=== PATIENT | male | born 2000 | race Caucasian/White ===

== ENCOUNTER 2021-01-11 20:25 | Emergency (ER) | payer BC ==
[2021-01-11] MEDS ORDERED: Bacitracin 1 PK ONE (22:10)
== END 2021-01-11 22:25 | disposition home or self-care (01) ==
LOC: ERS 20:25
DX: S61.012A Laceration without foreign body of left thumb without damage to nail, initial encounter (principal); F17.210 Nicotine dependence, cigarettes, uncomplicated; W26.0XXA Contact with knife, initial encounter; Y93.E9 Activity, other interior property and clothing maintenance; Y92.009 Unspecified place in unspecified non-institutional (private) residence as the place of occurrence of the external cause
CPT/HCPCS: 12001

== ENCOUNTER 2022-02-11 02:56 | Emergency (ER) | payer BC | END 2022-02-11 03:34 | disposition home or self-care (01) | LOC: ERS 02:56 | DX: Z02.79 Encounter for issue of other medical certificate (principal) ==

== ENCOUNTER 2022-05-24 17:28 | Inpatient (IN) | payer OTHER, BC ==
[~2022-05-24 17:28] MED LIST: Iopamidol-370 76% 500 ML 1 ML ONE
[2022-05-24] MEDS ORDERED: Morphine 2 MG/ML VIAL ONE (17:40)
[2022-05-24 18:01] LABS: #Basophils 0.1 thou/uL (0.0-0.2); #Eosinphils 0.3 thou/uL (0.0-0.7); #Lymphocytes 4.5 thou/uL (1.20-3.40); #Monocytes 1.4 thou/uL (0.11-0.59); #Neutrophils 6.4 thou/uL (1.40-6.50); %Basophils 1.1 % (0.0-1.0); %Lymphocytes 35.6 % (21.0-51.0); %Neutrophils 50.3 % (42.0-75.0); Hemoglobin 15.5 g/dL (14.0-18.0); Mean Corpuscular HGB CONC 34.2 g/dL (32.0-36.0); Mean Corpuscular Hemoglobin 33.3 pg (27.0-31.0); Mean Corpuscular Volume 97.2 fl (78.0-98.0); Mean Platelet Volume 6.7 fL (7.4-10.4); Platelet Count 320 10x3/uL (130-400); RBC Distribution Width 11.3 % (11.5-14.5); Red Blood Cell (RBC) Count 4.65 mill/uL (4.70-6.10); White Blood Cell (WBC) Count 12.8 10x3/uL (4.8-10.8)
[2022-05-24] MEDS ORDERED: Fentanyl 100 MCG/2 ML VIAL ONE (18:01)
[2022-05-24 18:12] LABS: PTT 23.4 sec (22.9-36.1); Prothrombin Time 13.6 sec (12.0-14.7)
[2022-05-24 18:24] LABS: ALT (SGPT) 24 U/L (8-55); AST (SGOT) 25 U/L (5-34); Albumin 4.7 g/dL (3.5-5.0); Alkaline Phosphatase 78 U/L (40-110); Anion Gap 19 mmol/L (10-20); BUN (Urea Nitrogen) 15 mg/dL (8.9-20.6); Bilirubin, Total 0.6 mg/dL (0.2-1.2); Calc. Creatinine Clearance 0 mL/min (70-130); Calcium 9.8 mg/dL (7.8-10.44); Carbon Dioxide 20 mmol/L (22-29); Chloride 105 mmol/L (98-107); Estimated GFR 104; Globulin 2.6 g/dL (2.4-3.5); Glucose 116 mg/dL (70-105); Potassium 3.5 mmol/L (3.5-5.1); Protein, Total 7.3 g/dL (6.0-8.3); Sodium 140 mmol/L (136-145)
[2022-05-24] MEDS ORDERED: Morphine 4 MG/ML VIAL ONE (18:50)
[2022-05-24] MEDS ORDERED: Ondansetron PF 4 MG/2 ML Vial IVP PRN (19:22)
[2022-05-24] MEDS ORDERED: Ipratropium/Albuterol 3 ML NEB NEB PRN (19:22)
[2022-05-24] MEDS ORDERED: traMADol HCl 50 MG TAB PO PRN (19:24)
[2022-05-24] MEDS ORDERED: Ketorolac Tromethamine 30 MG/ML VIAL IVP SCH (19:30)
[2022-05-24] MEDS: Morphine 4 MG/ML VIAL SLOW IVP PRN ×2 (21:15→23:23)
[2022-05-24] MEDS: Ketorolac Tromethamine 30 MG/ML VIAL IVP SCH ×2 (21:43→23:07)
[2022-05-24] MEDS: Sodium Chloride 0.9% 1,000 ML IV SCH (21:56)
[2022-05-24] MEDS: Gabapentin 300 MG CAP PO SCH (21:58)
[2022-05-24] MEDS: Senokot S 8.6-50 MG TAB PO SCH (21:59)
[2022-05-24] MEDS: Famotidine/PF 20 mg/2ml Vial SLOW IVP SCH (22:00)
[2022-05-24 22:27] VITALS: BMI 23.8
[2022-05-24 22:54] LABS: SARS-CoV-2 NAA Rapid Test Not Detected (NotDetected)
[2022-05-24] MEDS: traMADol HCl 50 MG TAB PO SCH (23:05)
[2022-05-24] MEDS: Acetaminophen 500 MG TAB PO SCH (23:06)
[2022-05-25] MEDS: Cyclobenzaprine 10 MG TAB PO PRN (02:38)
[2022-05-25] MEDS: Morphine 4 MG/ML VIAL SLOW IVP PRN (02:39)
[2022-05-25] MEDS: traMADol HCl 50 MG TAB PO SCH ×4 (05:06→23:05)
[2022-05-25] MEDS: Acetaminophen 500 MG TAB PO SCH ×4 (05:07→23:05)
[2022-05-25] MEDS: Ketorolac Tromethamine 30 MG/ML VIAL IVP SCH (05:08)
[2022-05-25] MEDS: Sodium Chloride 0.9% 1,000 ML IV SCH ×3 (05:14→22:23)
[2022-05-25 06:26] LABS: INR-International Normal Ratio 1.1; PTT 27.6 sec (22.9-36.1); Prothrombin Time 14.1 sec (12.0-14.7)
[2022-05-25 06:31] LABS: #Eosinphils 0.1 thou/uL (0.0-0.7); #Lymphocytes 1.7 thou/uL (1.20-3.40); #Monocytes 1.2 thou/uL (0.11-0.59); #Neutrophils 6.1 thou/uL (1.40-6.50); %Basophils 0.3 % (0.0-1.0); %Eosinophils 0.7 % (0.0-10.0); %Monocytes 12.8 % (0.0-10.0); %Neutrophils 67.2 % (42.0-75.0); Hemoglobin 13.3 g/dL (14.0-18.0); Mean Corpuscular HGB CONC 33.7 g/dL (32.0-36.0); Mean Corpuscular Hemoglobin 33.1 pg (27.0-31.0); Mean Corpuscular Volume 98.2 fl (78.0-98.0); Mean Platelet Volume 6.8 fL (7.4-10.4); Platelet Count 197 10x3/uL (130-400); RBC Distribution Width 11.4 % (11.5-14.5); Red Blood Cell (RBC) Count 4.02 mill/uL (4.70-6.10); White Blood Cell (WBC) Count 9.1 10x3/uL (4.8-10.8)
[2022-05-25 06:37] LABS: Anion Gap 10 mmol/L (10-20); BUN (Urea Nitrogen) 10 mg/dL (8.9-20.6); Calc. Creatinine Clearance 132 mL/min (70-130); Calcium 8.6 mg/dL (7.8-10.44); Carbon Dioxide 27 mmol/L (22-29); Chloride 105 mmol/L (98-107); Estimated GFR 128; Glucose 102 mg/dL (70-105); Potassium 3.4 mmol/L (3.5-5.1); Sodium 139 mmol/L (136-145)
[2022-05-25] MEDS ORDERED: CEFAZOLIN 2 GM in Sodium Chloride 0.9% 100 ML IVPB SCH (07:45)
[2022-05-25] MEDS ORDERED: CEFAZOLIN 2 GM VIAL ONE (08:04)
[2022-05-25] MEDS ORDERED: Sodium Chloride 0.9% 100 ML ONE (08:04)
[2022-05-25] MEDS ORDERED: Fentanyl 250 MCG/5 ML VIAL ONE (08:09)
[2022-05-25] MEDS ORDERED: Fentanyl 100 MCG/2 ML VIAL ONE (08:33)
[2022-05-25] MEDS ORDERED: Midazolam HCl 2 mg/2 ml Vial ONE (08:33)
[2022-05-25] MEDS ORDERED: Bupivacaine HCl 0.5%/Epinephrine 1:200,000/PF 30 ml Vial ONE (08:50)
[2022-05-25] MEDS: Gabapentin 300 MG CAP PO SCH ×3 (09:00→20:36)
[2022-05-25] MEDS ORDERED: Dexamethasone 20 MG/5 ML VIAL ONE (09:04)
[2022-05-25] MEDS ORDERED: Ondansetron PF 4 MG/2 ML Vial ONE (09:04)
[2022-05-25] MEDS ORDERED: PROPOFOL 200 MG/20 ML VIAL ONE (09:04)
[2022-05-25] MEDS ORDERED: ePHEDrine 50 MG/ML VIAL ONE (09:04)
[2022-05-25] MEDS ORDERED: Lidocaine 1% PF 5 ML VIAL ONE (09:04)
[2022-05-25] MEDS ORDERED: Meperidine HCl/PF 25 MG/ML VIAL ONE (10:29)
[2022-05-25] MEDS ORDERED: HYDROmorphone 0.5 MG/0.5 ML SYRINGE ONE (10:36)
[2022-05-25] MEDS: Senokot S 8.6-50 MG TAB PO SCH ×2 (11:29→20:35)
[2022-05-25] MEDS: Multivitamin W/ Minerals 1 TAB PO SCH (11:30)
[2022-05-25] MEDS: Famotidine/PF 20 mg/2ml Vial SLOW IVP SCH (11:30)
[2022-05-25] MEDS: Polyethylene Glycol 3350 17 GM Packet PO SCH (11:31)
[2022-05-25] MEDS ORDERED: Potassium Phosphate 30 MMOL in Sodium Chloride 0.9% 250 ML 250 ML IVPB SCH (12:00)
[2022-05-25] MEDS: Morphine 2 MG/ML VIAL SLOW IVP PRN ×2 (14:08→16:10)
[2022-05-25] MEDS: CEFAZOLIN 2 GM in Sodium Chloride 0.9% 100 ML IVPB SCH ×2 (14:15→22:23)
[2022-05-25] MEDS ORDERED: Ibuprofen 200 MG TAB PO SCH (18:45)
[2022-05-25] MEDS: Famotidine 20 MG TAB PO SCH (20:35)
[2022-05-25] MEDS: Ibuprofen 200 MG TAB PO SCH (22:21)
[2022-05-26] MEDS: Cyclobenzaprine 10 MG TAB PO PRN (04:38)
[2022-05-26] MEDS: Ibuprofen 200 MG TAB PO SCH ×2 (05:06→14:35)
[2022-05-26] MEDS: traMADol HCl 50 MG TAB PO SCH ×2 (05:07→11:10)
[2022-05-26] MEDS: Acetaminophen 500 MG TAB PO SCH ×2 (05:08→11:11)
[2022-05-26 06:11] LABS: #Eosinphils 0.1 thou/uL (0.0-0.7); #Lymphocytes 1.9 thou/uL (1.20-3.40); #Neutrophils 5.8 thou/uL (1.40-6.50); %Basophils 0.1 % (0.0-1.0); %Eosinophils 1.2 % (0.0-10.0); %Lymphocytes 21.7 % (21.0-51.0); %Monocytes 11.7 % (0.0-10.0); %Neutrophils 65.4 % (42.0-75.0); Hemoglobin 11.1 g/dL (14.0-18.0); Mean Corpuscular HGB CONC 33.7 g/dL (32.0-36.0); Mean Corpuscular Hemoglobin 33.6 pg (27.0-31.0); Mean Corpuscular Volume 99.7 fl (78.0-98.0); Mean Platelet Volume 6.8 fL (7.4-10.4); Platelet Count 204 10x3/uL (130-400); RBC Distribution Width 11.2 % (11.5-14.5); Red Blood Cell (RBC) Count 3.32 mill/uL (4.70-6.10); White Blood Cell (WBC) Count 8.9 10x3/uL (4.8-10.8)
[2022-05-26 06:48] LABS: Anion Gap 11 mmol/L (10-20); BUN (Urea Nitrogen) 5 mg/dL (8.9-20.6); Calc. Creatinine Clearance 154 mL/min (70-130); Calcium 8.4 mg/dL (7.8-10.44); Carbon Dioxide 25 mmol/L (22-29); Chloride 107 mmol/L (98-107); Estimated GFR 134; Glucose 90 mg/dL (70-105); Phosphorus 2.7 mg/dL (2.3-4.7); Potassium 3.9 mmol/L (3.5-5.1); Sodium 139 mmol/L (136-145)
[2022-05-26] MEDS: Gabapentin 300 MG CAP PO SCH ×2 (08:43→14:34)
[2022-05-26] MEDS: Senokot S 8.6-50 MG TAB PO SCH (08:43)
[2022-05-26] MEDS: Multivitamin W/ Minerals 1 TAB PO SCH (08:44)
[2022-05-26] MEDS: Polyethylene Glycol 3350 17 GM Packet PO SCH (08:44)
[2022-05-26] MEDS: Famotidine 20 MG TAB PO SCH (08:44)
[2022-05-26] MEDS ORDERED: Sertraline 100 MG TAB PO SCH (09:00)
[2022-05-26] MEDS ORDERED: Bupropion 150 MG XL TAB PO SCH (09:00)
[2022-05-26 16:08] VITALS: TEMP 98.3
[2022-05-26 16:09] VITALS: BP 135/83
== END 2022-05-26 16:30 | disposition home or self-care (01) | DRG 482 ==
LOC: ERS 17:28 → SURG A 18:51
PROVIDERS: ADMIT Specialist; ATTEND Specialist
PROC: 0QS806Z Reposition Right Femoral Shaft with Intramedullary Internal Fixation Device, Open Approach (ICD-10-PCS; principal; 2022-05-25)
DX: S72.301A Unspecified fracture of shaft of right femur, initial encounter for closed fracture (principal); F32.A Depression, unspecified; Z20.822 Contact with and (suspected) exposure to COVID-19; V59.9XXA Occupant (driver) (passenger) of pick-up truck or van injured in unspecified traffic accident, initial encounter; Y92.9 Unspecified place or not applicable; Z98.890 Other specified postprocedural states
CPT/HCPCS: 36415; 70450; 71045; 72125; 72170; 74177; 80048; 80053; 83735; 84100; 85025; 85610; 85730; 86850; 86900; 86901; 96374; 96375; 96376; C1713; G0390; J1100; J1170; J1885; J2175; J2250; J2270; J2272; J2405; J2704; J3010; J3490; J7050; Q9967; S0028; U0002